=== PATIENT | female | born 1985 | race Caucasian/White ===

== ENCOUNTER 2024-11-03 03:34 | Emergency (ER) | payer MEDICAID, SELFPAY ==
[2024-11-03 03:34] VITALS: BMI 34.0
[2024-11-03 03:47] VITALS: BP 161/89; PULSE 81; RESP 17; TEMP 36.9; O2SAT 98
--- NOTE | 2024-11-03 03:57 | PD.EDRME ---
Rapid Medical Screening Exam RME Arrival date/time: 11/03/24 03:34 39-year-old female presents emergency department complaining of epigastric pain with vomiting after receiving Wegovy injection. Chief Complaint: Abdominal Pain Time Seen by Provider: 11/03/24 03:46 Vital signs: Vital Signs Temperature 98.5 F 11/03/24 03:47 Pulse Rate 81 11/03/24 03:47 Respiratory Rate 17 11/03/24 03:47 Blood Pressure 161/89 H 11/03/24 03:47 Pulse Oximetry (%) 98 11/03/24 03:47 Oxygen Delivery Method Room Air 11/03/24 03:47 Vital signs reviewed by provider: Yes
[2024-11-03] MEDS: MG HYD/AL HYD/SIME (Maalox Reg) SUSP 30 ML UDC PO (04:14)
[2024-11-03] MEDS: FAMOTIDINE 20 MG TABLET 40 MG PO (04:14)
[2024-11-03 04:50] LABS: Collection Type, Urine Clean Catch
[2024-11-03 05:02] LABS: Amphetamine/Methamp Scrn,U Negative (Negative); Barbiturate Screen,Urine Negative (Negative); Benzodiazepines Screen,Urine Negative (Negative); Benzoylecgonine Screen, Ur Negative (Negative); Fentanyl Screen,Urine Negative (Negative); Opiate Screen,Urine Negative (Negative); THC Screen,Urine Negative (Negative)
[2024-11-03 05:06] LABS: Bilirubin,Urine Negative (Negative); Blood,Urine 2+ (Negative); Clarity,Urine Clear (Clear/Hazy); Color,Urine Yellow (Lt Yel-Yel); Culture Indicated,Urine Not Indicated; Glucose, Urine Negative (Negative); Ketones,Urine Negative (Negative); Leukocyte Esterase,Urine Negative (Negative); Nitrite,Urine Negative (Negative); Protein,Urine Trace (Neg - Trace); RBC,Urine 4 /hpf (0-3); Specific Gravity,Urine 1.027 (1.001-1.035); Squamous Epithelial Cell,Urine 9 /hpf (0-5); Urobilinogen,Urine Negative mg/dL (0.0-1.0); WBC,Urine 2 /hpf (0-5)
[2024-11-03 05:27] LABS: Basophils % (Auto) 0 % (0-2.5); Eosinophils # (Auto) 0.1 Thou/mm3 (0.0-0.5); Eosinophils % (Auto) 1 % (0-10); Hematocrit 39.5 % (36.0-46.0); Hemoglobin 12.9 g/dL (12.0-16.0); Immature Granulocytes % (Auto) 1 % (0-0); Immature Granulocytes Auto 0.06 Thou/mm3 (0.00-0.00); Lymphocytes % (Auto) 27 % (10-50); Mean Corpuscular HGB Conc 32.7 g/dl (31.0-37.0); Mean Corpuscular Hemoglobin 28.8 pg (25.0-35.0); Mean Corpuscular Volume 88 fL (80-100); Monocytes # (Auto) 0.7 Thou/mm3 (0.0-0.8); Monocytes % (Auto) 6 % (0-12); Neutrophils # (Auto) 7.4 Thou/mm3 (1.8-7.7); Neutrophils % (Auto) 65 % (37-80); Nucleated Red Blood Cell % 0 /100 WBC (0); Platelet Count 329 Thou/mm3 (140-440); RDW Standard Deviation 42.8 fL (36.4-46.3); Red Blood Count 4.48 Miln/mm3 (4.00-5.20); White Blood Count 11.3 Thou/mm3 (3.6-11.0)
[2024-11-03 06:01] LABS: Alanine Aminotransferase 21 U/L (10-49); Albumin, Serum 4.8 gm/dL (3.5-5.0); Albumin/Globulin Ratio 1.7 (1.2-2.2); Alkaline Phosphatase 87 U/L (46-116); Anion Gap 8 (7-16); Aspartate Amino Transferase 20 U/L (0-34); BUN/Creatinine Ratio 16 Ratio (12-20); Bilirubin,Total 0.4 mg/dL (0.3-1.2); Blood Urea Nitrogen 13 mg/dL (9-23); Calcium 9.5 mg/dL (8.3-10.6); Calcium (Corrected) 9.5 mg/dL (8.5-10.1); Carbon Dioxide 26.9 mMol/L (20.0-31.0); Chloride 104 mMol/L (98-107); Creatinine (Component) 0.8 mg/dL (0.6-1.3); Globulin 2.8 gm/dL (2.3-3.5); Glucose 114 mg/dL (74-106); Lipase 30 U/L (12-53); Osmolality,Calculated 278 (275-295); Potassium 3.8 mMol/L (3.4-5.1); Sodium 139 mMol/L (136-145); Total Protein 7.6 gm/dL (5.7-8.2); eGFR > 60 See Note
--- NOTE | 2024-11-03 06:42 | PC.NURSE ---
Pt coming from home for c/o vomiting and abd pain since yesterday morning. Pt says she got Wegovey shot for weight loss 2 days ago and believes symptoms are associated with that. Denies any medical hx. Pt is A&O x4, GCS 15, bed locked in lowest position. MD Palomino at bedside assessing pt.
[2024-11-03 06:44] VITALS: BP 164/94; PULSE 90; RESP 16; O2SAT 96
--- NOTE | 2024-11-03 06:45 | EDNOTE_ITS ---
ED Abdominal Pain RME/HPI General Chief Complaint: Abdominal Pain Stated complaint: EPIGASTRIC PAIN;N/V Time seen by provider: 11/03/24 03:46 Arrival date/time: 11/03/24 03:34 RME / HPI RME / HPI narrative: 11/03/24 03:34 39-year-old female presents emergency department complaining of epigastric pain with vomiting after receiving Wegovy injection. DR. KULKARNI MAIN ED EVALUATION 39 year old female with no stated medical history presents to the ED for evaluation of epigastric abdominal pain beginning last night. Described as aching in sensation, without any radiation, and rating as moderate in severity. Accompanied by nausea, multiple episodes of nonbloody vomiting. Reportedly had received the Wegovy injection in the left lower abdomen for the first time 3 days ago for weight loss. Denies fevers, chills, chest pain, cough, diarrhea, or urinary symptoms. Related Data Previous Rx's ?Medication ?Instructions ?Recorded nitrofurantoin 100 mg PO Q12H #14 caps 07/19/18 monohydrate/macrocrystals 100 mg capsule (Macrobid) phenazopyridine 200 mg tablet 200 mg PO TID #14 tabs 07/19/18 (Pyridium) diazepam 10 mg tablet (Valium) 10 mg PO BID PRN muscle 12/13/22 spasm/tension #14 tabs naproxen 500 mg tablet (Naprosyn) 500 mg PO BID PRN pain #30 tabs 12/13/22 aluminum-mag hydroxide-simethicone 10 ml PO Q6H PRN dyspepsia #355 mL 11/03/24 200 mg-200 mg-20 mg/5 mL oral susp (Maalox Advanced) famotidine 40 mg tablet (Pepcid) 40 mg PO QDAY #30 tabs 11/03/24 ondansetron 4 mg disintegrating 4 mg PO Q6H PRN nausea and 11/03/24 tablet vomiting #10 tabs Allergies Allergy/AdvReac Type Severity Reaction Status Date / Time No Known Allergies Allergy Verified 11/03/24 03:37 Review of Systems Review of Systems Narrative Review of Systems: GEN: No fever, no chills, no weight loss EYES: No discharge, no visual changes, no pain HEENT: No ear pain, no congestion, no sore throat PULM: No shortness of breath, no cough, no congestion CV: No chest pain, no dyspnea on exertion, no palpitations GI: +n/v, no diarrhea, +pain, no constipation : No frequency, no urgency and no dysuria MUSC/SKEL No joint pain, no back pain SKIN: No rash PSYCH: No hallucinations, no depression HEME/LYMPH: No easy bleeding or bruising tendencies NEURO: No weakness, no headache Past Medical History Past Medical History CARDIAC: Negative Congestive Heart Failure RESPIRATORY: Negative Chronic Obstructive Pulmonary Disease (COPD) GENITOURINARY: Negative Renal Disease REPRODUCTIVE: Negative Pelvic Inflammatory Disease ENDOCRINE: Negative Diabetes Mellitus Type 1 or Diabetes Mellitus Type 2 Social History SMOKING STATUS: Never smoker ED Exam Narrative Physical exam: GENERAL APPEARANCE: Well hydrated, well nourished, in no acute distress. VITALS: All vitals were reviewed and the pulse ox is 96% on room air which is normal according to my interpretation. HEENT: Normocephalic, atramatic, EOMI, EACs are patent. There is no bulge or retraction. Throat without erythema or exudate. Moist oromucosa. No jaundice NECK: Supple, no JVD or bruits. CARDIOVASCULAR: Heart regular without S3-S4 or murmur. No rubs or gallops. LUNGS/CHEST: Clear to auscultation bilaterally. No rales, rhonchi, or wheezing. Normal inspection. ABDOMEN: Soft, nontender, with normal bowel sounds. No pulsatile masses. No rebound, rigidity, or guarding. No incarcerated hernia. Normal inspection and palpation. EXTREMITIES: Normal inspection and palpation. No edema, clubbing, or cyanosis. Intact CSM SKIN: Warm and dry without rashes. Normal inspection. MUSCULOSKELETAL: Normal inspection. No gross deformity, full ROM all extremities NEURO: Alert and oriented x3. Cranial nerves II through XII grossly intact. There are no other motor or sensory deficits noted. PSYCHIATRIC: Normal mood and affect. No psychosis Course Quality Measures none Orders Category Date Time Status CBC Stat Lab 11/03/24 04:44 Completed CMP [Comprehensive Metabolic Panel] Stat Lab 11/03/24 04:44 Completed Drug Screen,Urine Stat Lab 11/03/24 04:38 Completed Lipase Stat Lab 11/03/24 04:44 Completed Urinalysis, C/S if Indicated Stat Lab 11/03/24 04:38 Completed Famotidine [Pepcid] Med 11/03/24 03:57 Discontinued 40 mg PO X1 ONE mg Hyd/Al Hyd/Alphonso Susp [Maalox Susp] Med 11/03/24 03:57 Discontinued 30 ml PO X1 ONE Vital Signs Vital signs: Vital Signs Temperature 98.5 F 11/03/24 03:47 Pulse Rate 81 11/03/24 03:47 Respiratory Rate 17 11/03/24 03:47 Blood Pressure 161/89 H 11/03/24 03:47 Pulse Oximetry (%) 98 11/03/24 03:47 Oxygen Delivery Method Room Air 11/03/24 03:47 Abdominal Pain MDM MDM Narrative MDM Narrative:: I, Vikki Dominguez, am scribing for and in the presence of Dr. Kulkarni. CBC is negative. CMP negative. Lipase is negative. Urine analysis is negative. U tox is negative. Patient denies being . She is on her menstruation right now. In addition she had a history of bilateral tubal ligation's. On exam the patient had minimal discomfort over the epigastrium. Otherwise, there is no Pineda. No McBurney. No flank tender. No rebound or guarding. A nd no cellulitis. The patient does not appear to be dehydrated either. Her pulse is 81. She is warm pink and moist. Before I saw the patient in fact before my shift begins at 6:00 in the morning, the patient had been here and she had been given Pepcid and Maalox. When I saw the patient she does not have any nausea dizzy vomiting. Patient data External records reviewed:: [facility] previous records (I reviewed ED visit on 12/12/2022) Clinical information provided by:: patient Social determinants that could affect healthcare access:: none Patient has the following chronic illnesses:: None reported How is presenting disease/condition affected by chronic disease/condition?: no chronic disease Evaluation data The following diagnostics were reviewed and interpreted by me:: lab results and radiology exam(s) Lab and/or radiology exams considered but not ordered:: None Interpretation Summary: See above Medications / Prescriptions Medications or Prescriptions considered but not ordered:: None Medication administrations:: Medication Administration History Discontinued Medications Al Hydrox/Mg Hydrox/Simethicone (Mg Hyd/Al Hyd/Alphonso (Maalox Reg) Susp 30 Ml Udc) 30 ml PO X1 ONE Stop: 11/03/24 03:58 Last Admin: 11/03/24 04:14 Dose: 30 ml Documented By: KEO Famotidine (Famotidine 20 Mg Tablet) 40 mg PO X1 ONE Stop: 11/03/24 03:58 Last Admin: 11/03/24 04:14 Dose: 40 mg Documented By: KEO See above Consultations Consultation(s) initiated? (list below): No Diagnosis Differential diagnosis abdominal pain: abdominal pain, calculus of kidney, diverticulitis and gastroenteritis Most likely diagnosis given after review of the tests above:: Abdominal pain Gastritis Admission Indicated Admission indicated?: not indicated Admission Request Was there a request for admission?: No Disposition Plan Disposition Plan: Discharge Discharge Attestation Discharge Attestation: The patient and all family members were given an opportunity to ask questions and understood the discharge instructions. Discharge instructions specifically effects, indications for sooner follow up or return to the emergency department, and the expected course of current diagnosis. Patient condition: Stable Discharge Plan Plan Patient Disposition: HOME (Self Care) Prescriptions/Referrals Prescriptions/Med Rec: New famotidine [Pepcid] 40 mg tablet 40 mg PO QDAY Qty: 30 0RF ondansetron 4 mg tablet,disintegrating 4 mg PO Q6H PRN (Reason: nausea and vomiting) Qty: 10 0RF alum-mag hydroxide-simeth [Maalox Advanced] 200-200-20 mg/5 mL suspension 10 ml PO Q6H PRN (Reason: dyspepsia) Qty: 355 0RF No Action nitrofurantoin monohyd/m-cryst [Macrobid] 100 mg capsule 100 mg PO Q12H Qty: 14 0RF Rx Instructions: must administer with a meal/food phenazopyridine [Pyridium] 200 mg tablet 200 mg PO TID Qty: 14 0RF diazepam [Valium] 10 mg tablet 10 mg PO BID PRN (Reason: muscle spasm/tension ) Qty: 14 0RF naproxen [Naprosyn] 500 mg tablet 500 mg PO BID PRN (Reason: pain) Qty: 30 0RF Referrals: Ender Vasquez MD [Primary Care Provider] - In 1 week Problem List Clinical Impression: Abdominal pain, Gastritis Patient/Caregiver Discharge Instructions Education Materials: Abdominal Pain, ED Gastritis (Adult) Additional Instructions: Liquid diet for 24 hours. Medication as directed. See your doctor for recheck in 3 days. Return the nearest emergency department if condition worsens or if new symptoms develop especially fever. Print Language: Colombian Stand Alone Forms: Irish Award Info., Patient Portal Info Letter
== END 2024-11-03 07:07 | disposition home or self-care (01) ==
PROVIDERS: Emergency Provider Emergency Medicine; PCP Family Medicine
DX: K29.70 Gastritis, unspecified, without bleeding (principal)
CPT/HCPCS: 36415; 80053; 80307; 81001; 83690; 85025; 99283; A9270

== ENCOUNTER 2025-04-10 20:01 | Emergency (ER) | payer MEDICAID, SELFPAY ==
[2025-04-10 20:03] VITALS: BMI 34.0
[2025-04-10 22:05] VITALS: BP 143/82; PULSE 95; RESP 18; TEMP 36.9; O2SAT 96
--- NOTE | 2025-04-10 22:34 | PD.EDRME ---
Rapid Medical Screening Exam RME Arrival date/time: 04/10/25 20:01 39F with no significant PMH presents to ED with 3 months of L foot pain w/o fall/trauma. Patient declines XR after learning she more likely need PT and/or MRI. Chief Complaint: Ankle/Foot Injury Vital signs: Vital Signs Temperature 98.5 F 04/10/25 22:05 Pulse Rate 95 04/10/25 22:05 Respiratory Rate 18 04/10/25 22:05 Blood Pressure 143/82 H 04/10/25 22:05 Pulse Oximetry (%) 96 04/10/25 22:05 Oxygen Delivery Method Room Air 04/10/25 22:05
--- NOTE | 2025-04-10 22:35 | PC.NURSE ---
BRITTON RIDER STATED THAT PATIENT WAS GOING TO LEAVE.
--- NOTE | 2025-04-10 22:50 | PD.EDADDENDU ---
Emergency Room Addendum Addendum Narrative: When I looked for the patient, I was told she eloped. Mliton Pitts MD
--- NOTE | 2025-04-10 23:00 | PC.NURSE ---
CALLED PATIENT IN THE LOBBY NO ANSWER.
--- NOTE | 2025-04-11 00:42 | PC.NURSE ---
CALLED PATIENT IN THE LOBBY AND OUTSIDE, NO ANSWER RECEIVED.
== END 2025-04-11 00:43 | disposition left against medical advice (07) ==
LOC: SERX 23:20
PROVIDERS: Emergency Provider Emergency Medicine
DX: M79.672 Pain in left foot (principal); Z53.29 Procedure and treatment not carried out because of patient's decision for other reasons
CPT/HCPCS: 99281